=== PATIENT | female | born 1965 | race African-American/Black ===

== ENCOUNTER 2019-11-15 16:51 | Emergency (ER) | payer MEDICARE ==
[2019-11-15 17:32] LABS: RAPID GROUP A STREP NEGATIVE (NEGATIVE)
[2019-11-15] MEDS ORDERED: ACETAMINOPHEN EXTRA STRENGTH 500 MG TABLET ONE (17:40)
== END 2019-11-15 18:12 | disposition home or self-care (01) ==
LOC: EDH 16:51
DX: J11.1 Influenza due to unidentified influenza virus with other respiratory manifestations (principal); E11.9 Type 2 diabetes mellitus without complications; J45.909 Unspecified asthma, uncomplicated
CPT/HCPCS: 82948; 87804; 87880